=== PATIENT | male | born 1955 | race Caucasian/White ===

== ENCOUNTER 2019-09-10 11:03 | Outpatient (CLI) | payer BC, SELFPAY ==
--- NOTE | 2019-09-10 11:20 | CT_ITS ---
WS: [id number] CT ABDOMEN AND PELVIS WITH CONTRAST HISTORY: LLQ PAIN TECHNIQUE: Imaging performed of the abdomen and pelvis with IV contrast. Single phase imaging of the abdomen. Coronal and sagittal reformats are submitted. All CT scans at [facility] use at least one of these dose optimization techniques: automated exposure control; mA and/or kV adjustment per patient size (includes targeted exams where dose is matched to clinical indication); or iterativ e reconstruction. IV CONTRAST: Omnipaque 300; 95 mL IV. Oral contrast: Yes. DLP: 1176.79 mGycm COMPARISON: None available. Lower thorax: Lung bases are clear. Heart is normal size. No hiatal hernia. Liver/biliary system: Normal size with no intrahepatic dilatation. Gallbladder: Normal. No gallstones or wall thickening. No pericholecystic fluid. Pancreas: Normal. Spleen: Normal. Adrenal glands: Normal. Right kidney: Normal. Left kidney: Normal. Aorta: Mild atherosclerosis. No aneurysm. Lymphadenopathy: None. Free fluid: None. GI tract: Status post appendectomy. Innumerable diverticula in the descending and sigmoid colon. Mode rate to significant inflammatory process begins at the level of the proximal cecum over a length of 8 cm. Although no free air is identified there are numerous tiny diverticula minimally covered by mu cosa. Significant inflammation without an abscess. Abdominal wall: Unremarkable abdominal wall. No hernia. Pelvis: Well-distended urinary bladder. No free fluid in the pelvis. Bones: 5 mm anterolisthesis of L5 with bilateral L5 pars defects. Moderate disc disc desiccation and degeneration at L5-S1. Notified Jennifer Conteh MD at 09/10/2019 1:20 PM. Report discussed with nursing. CT/CT abdomen pelvis w con* [id number] IMPRESSION: 1. Moderate to severe acute sigmoid diverticulitis. No abscess at this time or free fluid. 2. Innumerable diverticula in the descending and sigmoid colon. 3. Prior appendectomy. 4. Grade 1 spondylolisthesis and spondylolysis of L5.
[2019-09-10] MEDS: iohexol 300 mg/mL 50 mL Btl PO (12:11)
[2019-09-10 12:55] LABS: Blood Urea Nitrogen 13 mg/dL (8-23); Glomerular Filtration Rate 67.6 mL/min (90-130)
[2019-09-10] MEDS: iohexol 300 mg/mL 100 mL Btl IV (13:01)
== END 2019-09-10 11:04 | disposition home or self-care (01) ==
LOC: RADWPI 11:10
PROVIDERS: Family Provider Internal Medicine; PCP Internal Medicine; Visit Provider Internal Medicine
DX: K57.32 Diverticulitis of large intestine without perforation or abscess without bleeding (principal); K57.30 Diverticulosis of large intestine without perforation or abscess without bleeding; M43.16 Spondylolisthesis, lumbar region; R10.32 Left lower quadrant pain
CPT/HCPCS: 74177; 82565; 84520; Q9967

== ENCOUNTER 2020-03-30 10:44 | Outpatient (CLI) | payer BC, SELFPAY ==
[2020-03-30 11:19] VITALS: BMI 27.8
--- NOTE | 2020-03-30 11:19 | ECG_ITS ---
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 Interpretive Statements NAME OF STUDY: TREADMILL STRESS TEST INDICATION: Chest Pain PROCEDURE: At the baseline, the patient's blood pressure was with a heart rate of. The baseline electrocardiogram showed normal sinus rhythm with normal ST-Ts.. The patient 6 minutes and 42 seconds on a standard Martin protocol. Patient attained a maximum heart rate of 160 beats per minute( 101 % of the maximum predicted heart rate) with a blood pressure at the peak exercise of 212/71 mm Hg. The EKG at the peak exercise revealed [address]ressions in leads II, III, aVF and V3 to V6. Patient did not have any chest pain or any significant cardiac arrhythmias with the exercise During the recovery phase, there were no new changes. Blood pressure at the end of the recovery phase was 178/90 mm Hg with a heart rate of 95 per minute. CONCLUSION: 1. Abnormal EKG response to treadmill exercise suggestive of ischemia in the anterolateral and inferior wall regions 2. No exercise-induced chest pain or cardiac arrhythmia 3. Fair exercise tolerance, attained a maximum of 10.2 METs Electronically Signed On 03-30-2020 13:14:45 CDT by Konrad Pino M.D. [email or web address]
[2020-03-30 12:24] VITALS: BP 178/90; PULSE 95
== END 2020-03-30 10:45 | disposition home or self-care (01) ==
LOC: CDL 10:47
PROVIDERS: PCP Internal Medicine; Visit Provider Internal Medicine
DX: R07.9 Chest pain, unspecified (principal); R94.31 Abnormal electrocardiogram [ECG] [EKG]
CPT/HCPCS: 93017

== ENCOUNTER → 2020-04-24 08:39 | Outpatient (BNVA) | payer BC, SELFPAY | PROVIDERS: PCP Internal Medicine; Visit Provider Internal Medicine | DX: Z01.818 Encounter for other preprocedural examination (principal); R94.39 Abnormal result of other cardiovascular function study; Z20.828 Contact with and (suspected) exposure to other viral communicable diseases | CPT/HCPCS: 80048; 85025; 87635 ==

== ENCOUNTER 2020-04-28 08:16 | Observation (INO) | payer BC, SELFPAY ==
[2020-04-28] VITALS (18 sets, daily range): BP systolic 128–182; BP diastolic 71–103; PULSE 53–98; RESP 15–54; TEMP 36.4–36.6; O2SAT 96–98; BMI 27.0
--- NOTE | 2020-04-28 06:13 | XACV_ITS ---
Exam Room: 1 Ht: 180 cm Wt: 88 kg BSA: 2.11 m2 Gender: Male : 1955 Any Known Allergies: Penicillins Exam Priority: Routine Procedure(s): Procedure Description: Diagnostic procedure Procedure Description: Left Heart Catheterization Procedure Description: Coronary Angiography Diagnostic Cath Status: Elective Diagnostic Findings Abnormal stress test. LM is a long vessel. Mild luminal irregularities are noted. LAD has minor luminal irregularities. Gives rise to a large diagonal vessel. CX has minor luminal irregularities. Gives rise to a large OM branch that does not have any significant disease. RCA has diffuse mild atherosclerotic coronary artery disease. 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 pRCA: Mild 30% stenosis, ODALYS: 3 flow. Coronary angiography shows right dominance. Conclusions There is nonobstructive coronary artery disease. Symptoms likely related to microvascular disease and uncontrolled blood pressure. Recommendations Continue medical management and risk factor modification. Patient will need better blood pressure control. We will initiate amlodipine 5 mg daily as patient does not tolerate beta-eden up titration because of symptoms of fatigue. Diagnostic RX Recommendation: medical therapy and/or counseling Pressures Phase:Rest AO : 137 mmHg / 64 mmHg ( 100 mmHg ) @ 2:31:00 AM 117 mmHg / 68 mmHg ( 90 mmHg ) @ 2:32:00 AM 129 mmHg / 82 mmHg ( 104 mmHg ) @ 2:43:00 AM 132 mmHg / 83 mmHg ( 106 mmHg ) @ 2:46:00 AM 154 mmHg / 98 mmHg ( 124 mmHg ) @ 2:47:00 AM LV : 143 mmHg / -14 mmHg / @ 2:31:00 AM Clinical Evaluation EBL: 5mL-10mL Procedural Details Procedure Consent Obtained. Pre-Procedure Time Out. Identified patient by full name and date of as verbalized by the patient/guarantor. Does the consent match the physician's order: Yes. Accurate & Complete Informed Consent: Yes. Inpatient/Outpatient History & Physical on Chart: Yes. If H&P is completed, is and addenduem needed: No; If yes, is the addendum complete: N/A. Visualize and Verify Site with Patient/Guarantor: N/A. Relevant Radiology Images available: Yes. Pre-op teaching completed and patient verbalized understanding. The risks, benefits, and alternatives of sedation and/or procedure were discussed by physician. The patient agrees to continue. Procedure started. [facility] Clinical Fraility Score: 3: Managing Well. Club Concierge Indications: Suspected CAD. Chest Pain Symptom Assessment: Typical Angina Symptoms. Correct patient, site and procedure confirmed by cath team. Current diagnosis: Chest Pain. PERRLA. Strong, equal hand gill net stringer bilaterally. Lungs clear x 5 lobes. IV Site on Arrival: 20 gauge in the left forearm. IV Fluids: 0.9% NaCl at KVO. 0 mL infused prior to ear mold laboratory technician. Pre Procedural Pulses: bilateral dorsalis pedis was 2+. Pre Procedural Pulses: bilateral posterior tibial was 2+. Pre Procedural Pulses: bilateral radial was 2+. Oxygen started at 2liters/min via nasal canula. right groin was prepped with chloroprep then draped in the usual sterile fashion. right radial was prepped with chloroprep then draped in the usual sterile fashion. Baseline sample Acquired. HR: 72 BPM. Patient's family unavailable. Physician arrived. Physician scrubbed in. Immediate Pre-Procedure Time Out. Correct Patient: Yes; Correct Procedure: Yes; Correct Site: Yes; Correct Patient Position: Yes; Correct Supplies: Yes; Dried Flammable Prep: Yes; Blood Products Available: N/A;. Lidocaine 1% infiltrated to the right radial. Arterial access obtained. A 5 malay TIG catheter in over wire. wire out. glidewire inserted. EDP Sample taken: LV 143/-15,7; HR: 68 BPM; SpO2: 98%. Pullback taken: LV Off; AO Off; Mean: , Peak to Peak: , SEP: ; HR: 68 BPM; SpO2: 98%. Multiple views taken of left coronary artery. Catheter redirected to the RCA. Catheter removed over the exchange wire. A 5 malay JR5 catheter in over wire. Multiple views taken of right coronary artery. Physician review of cine films. Catheter out. Physician scrubbed out. TR band placed. Hemostasis obtained. A TR Band was successful obtaining hemostatsis at the Right Radial artery insertion site. Post Procedure: Pulses reassessed and unchanged. PERRLA. Strong, equal hand gill net stringer bilaterally. No VTE prophylaxis required. Medication's Wasted: Lidocaine 1% = 18 mL. Medication's Wasted: Heparin = 1000 units. Medication's Wasted: Nitro = 49.8 mcg. Medication's Wasted: Other = Versed 1 mg. Total IV fluids: 65 mL. Contrast type used: Omnipaque 300 mgI/mL, 500 mL bottle. Post-op diagnosis: Normal Coronaries. Complications: None. Estimated blood loss: 5mL-10mL. Procedure completed. Patient transferred by wheelchair to 1st floor. Vital chart was stopped. Site: Right Radial artery Sheath Size: 6 Fr Hemostasis Method: TR Band Hemostasis Success: Successful Procedure Medications Start: 7:18 AM Stop: 7:18 AM Medication: Versed Amount: 1 mg Route: I.V. Start: 7:18 AM Stop: 7:18 AM Medication: Fentanyl Amount: 50 mcg Route: I.V. Start: 7:21 AM Stop: 7:21 AM Medication: Versed Amount: 1 mg Route: I.V. Start: 7:21 AM Stop: 7:21 AM Medication: Fentanyl Amount: 50 mcg Route: I.V. Start: 7:24 AM Stop: 7:24 AM Medication: Nitrogylcerin Amount: 200 mcg Route: I.A. Start: 7:30 AM Stop: 7:30 AM Medication: Heparin Amount: 5000 units Route: I.V. Start: 7:32 AM Stop: 7:32 AM Medication: Versed Amount: 1 mg Route: I.V. I, the attending physician, have reviewed and verified all procedure medications. Yes, all medications given per verbal order History/Risk Factors Hypertension: Yes Dyslipidemia: Yes Peripheral Arterial Disease (PAD): No Myocardial Infarction ([place]): No Obesity: No Renal Disease: No Tobacco Use: Never Prior Interventions PCI: No CABG: No Valve Surgery: No Report Signatures Finalized by:Davie Soto MD on 04/29/2020 11:45:15 AM
[2020-04-28] MEDS: diphenhydrAMINE 50 mg Capsule PO (06:25)
--- NOTE | 2020-04-28 07:17 | W.PM.OPSUD ---
Surgery/Procedure H&P Update DATE OF PROCEDURE: April 28, 2020 DATE H&P PERFORMED: 04/01/20 H&P UPDATE INFORMATION: I have reviewed H&P completed within last 30 days and I have examined patient prior to procedure PREOP DIAGNOSIS: Abnormal stress test PRIMARY INDICATION FOR PROCEDURE: Abnormal stress test/chest pain PLANNED PROCEDURE: Operation Date: 04/28/20 07:00 Proposed Procedures p Cardiac Catheterization(Left) - Davie Soto M.D PATIENT REASSESSED PRIOR TO SEDATION, WITH NO CHANGE NOTED: Yes PHYSICAL EXAM: alert, oriented x 3 and clear to auscultation bilaterally AIRWAY EVAL/ANESTHESIA PLAN: normal airway and ASA II
--- NOTE | 2020-04-28 11:30 | PC.NURSE ---
Tr band removed per protocol min bleeding noted patient educated on do's and don't's post angiogram. patient verbalized understanding of instructions
--- NOTE | 2020-04-28 12:57 | PC.NURSE ---
Patient discharge home self care. Discharge instructions given explained patient verbalized understanding of all instructions provided as well as appointments. Iv discontinued cath intact min bleeding noted dressing applied. patient ambulated to private vehicle accompanied by staff. Patient alert oriented and in stable condition.
--- NOTE | 2020-04-30 13:12 | PC.RESP ---
Tobacco Cessation information and a schedule of classes sent to patient.
== END 2020-04-28 13:00 | disposition home or self-care (01) ==
LOC: CSU 08:17
PROVIDERS: Admitting Provider Internal Medicine; PCP Internal Medicine; Visit Provider Internal Medicine
DX: I25.10 Atherosclerotic heart disease of native coronary artery without angina pectoris (principal); E78.5 Hyperlipidemia, unspecified; R94.39 Abnormal result of other cardiovascular function study; I10 Essential (primary) hypertension; F17.220 Nicotine dependence, chewing tobacco, uncomplicated; Z79.82 Long term (current) use of aspirin; Z88.0 Allergy status to penicillin
CPT/HCPCS: 12345; 36415; 93452; C1769; C1887; C1894; G0378; J1644; J2250; J3010; J3490; J7030; Q0163; Q9967

== ENCOUNTER 2021-11-10 09:12 | Outpatient (CLI) | payer MEDICARE, BC, SELFPAY ==
--- NOTE | 2021-11-10 09:23 | CT_ITS ---
WS: [id number] CT ABDOMEN PELVIS TECHNIQUE: Contrast-enhanced CT of the abdomen and pelvis with coronal and sagittal reformatted image s. CLINICAL INFORMATION: ABD PAIN, LLQ COMPARISON: CT September 10, 2019 DLP: 1066.[address] scans at [facility] use at least one of these dose optimization techniques: automated e xposure control; mA and/or kV adjustment per patient size (includes targeted exams where dose is matc hed to clinical indication); or iterative reconstruction. FINDINGS: Mild thickening with inflammatory stranding and edema involving the sigmoid colon LEFT lower quadrant compatible with acute diverticulitis. No evidence of drainable abscess or fluid collection. No free air. Remainder of colon is normal. Mild diffuse fatty infiltration of the liver. Normal portal vein and splenic vein. Normal spleen. Tin y esophageal hiatal hernia. Normal caliber abdominal aorta. Celiac and SMA are patent. Normal renal parenchymal enhancement. No h ydronephrosis. Tiny fat-containing umbilical hernia. Lung bases are well aerated. Normal pancreatic parenchymal enha ncement. Adrenal glands are normal. No abdominal lymphadenopathy. No pelvic lymphadenopathy. No ingui nal lymphadenopathy. Disc space narrowing L5-S1. Chronic spondylolysis L5-S1 with slight anterolisthesis. CT/CT abdomen pelvis w con* [id number] IMPRESSION: 1. Thickening of the sigmoid colon with surrounding inflammatory stranding and edema compatible with acute diverticulitis. No evidence of drainable abscess o r fluid collection. Recommend follow-up to resolution. 2. Mild diffuse fatty infiltration of the liver. 3. Small esophageal hiatal hernia. 4. Normal renal parenchymal enhancement. No hydronephrosis. 5. Chronic L5-S1 bilateral spondylolysis with slight anterolisthesis. Notified Jennifer Conteh MD at 11/10/2021 11:35 AM.
[2021-11-10] MEDS: iohexol 300 mg/mL 50 mL Btl PO (09:31)
[2021-11-10] MEDS: iodixanol 320 mg/mL 100mL Btl IV (11:05)
[2021-11-10 11:12] LABS: Blood Urea Nitrogen 24 mg/dL (8-23); Glomerular Filtration Rate 55.4 mL/min (90-130)
== END 2021-11-10 09:13 | disposition home or self-care (01) ==
LOC: RAD 09:17
PROVIDERS: Radiology Diagnostic Radiology; PCP Internal Medicine; Visit Provider Internal Medicine
DX: R10.32 Left lower quadrant pain (principal); M43.07 Spondylolysis, lumbosacral region; K44.9 Diaphragmatic hernia without obstruction or gangrene; K76.0 Fatty (change of) liver, not elsewhere classified
CPT/HCPCS: 74177; 82565; 84520

== ENCOUNTER → 2022-09-06 09:34 | Outpatient (BNVA) | payer MEDICARE, BC, SELFPAY | PROVIDERS: PCP Internal Medicine; Visit Provider Otolaryngology | DX: H93.13 Tinnitus, bilateral (principal); H91.93 Unspecified hearing loss, bilateral | CPT/HCPCS: 99203 ==